=== PATIENT | male | born 1965 | race Caucasian/White ===

== ENCOUNTER 2017-11-11 07:02 | Emergency (ER) | payer SELFPAY ==
[2017-11-11] MEDS ORDERED: Acetaminophen TAB* 325 MG PO ONE (07:23)
[2017-11-11 07:59] LABS: ABS Basophils 0.1 10^3/ul (0-0.2); ABS Eosinophils 0.2 10^3/ul (0-0.6); ABS Lymphocytes 1.6 10^3/ul (1.0-4.8); ABS Monocytes 0.5 10^3/ul (0-0.8); ABS Neutrophils 5.2 10^3/ul (1.5-7.7); ABS Nucleated RBC 0 10^3/ul; Eosinophil % 2.4 % (0-6); Hematocrit 40 % (42-52); Hemoglobin 13.8 g/dl (14.0-18.0); Lymphocyte % 20.8 % (25-47); Mean Corpuscular HGB Conc 35 g/dl (31-36); Mean Corpuscular Hemoglobin 32 pg (27-31); Mean Corpuscular Volume 91 fL (80-94); Mean Platelet Volume 8.7 um3 (7.4-10.4); Nucleated Red Blood Cells % 0; Platelet Count 213 10^3/ul (150-450); Red Blood Count 4.38 10^6/ul (4.0-5.4); Red Cell Distribution Width 13 % (10.5-15); White Blood Count 7.5 10^3/ul (3.5-10.8)
[2017-11-11] MEDS ORDERED: NS 0.9% 1000 ML* 1,000 ML IV SCH (08:00)
[2017-11-11 08:07] LABS: INR 0.94 (0.77-1.02)
[2017-11-11 08:11] LABS: EGFR Non-African American 74.4 (>60)
--- NOTE | 2017-11-11 08:24 | RAD ---
INDICATION: Head injury. COMPARISON: There are no prior studies available for comparison. TECHNIQUE: Contiguous axial sections of the brain were obtained from the skull base to the vertex without contrast. FINDINGS: The ventricles, cisterns and sulci are within normal limits. No significant focal abnormality or mass effect is seen. There is no evidence for hemorrhage. No fracture is seen. There is mucosal thickening within the frontal, ethmoid and maxillary sinuses. No air-fluid levels are noted. The mastoid air cells appear clear. IMPRESSION: NO EVIDENCE FOR ACUTE INTRACRANIAL ABNORMALITY.
--- NOTE | 2017-11-11 08:30 | RAD ---
INDICATION: Trauma. COMPARISON: There are no prior studies available for comparison. TECHNIQUE: Contiguous axial sections were obtained from the skull base through the T3 vertebra. Images were reconstructed in the sagittal and coronal planes. FINDINGS: There is straightening of the cervical spine with loss of the normal cervical lordosis. No prevertebral soft tissue swelling or fracture is seen. At the C3-C4 level there is no spinal canal or neural foraminal narrowing. The C4-C5 level there is mild posterior uncinate process spurring. No spinal canal narrowing is present. There is mild neural foraminal narrowing on the left side. At the C5-C6 level there is mild to moderate uncinate process spurring. No significant spinal canal narrowing is present. There is mild neural foraminal narrowing on the left side. At the C6-C7 level there is mild to moderate uncinate process spurring. No significant spinal canal narrowing is present. There is mild bilateral neural foraminal narrowing. The thyroid gland is not visualized. Most consistent with atrophy or prior surgical removal. There are several calcifications within the thyroid bed on the right side and calcifications in the right paratracheal region suggestive of old granulomatous disease. There are mild groundglass infiltrates present at the lung apices possibly related to atelectasis. IMPRESSION: 1. STRAIGHTENING OF THE CERVICAL SPINE, NO EVIDENCE FOR FRACTURE OR SUBLUXATION. 2. MILD CERVICAL SPONDYLOSIS.
--- NOTE | 2017-11-11 08:38 | RAD ---
INDICATION: Facial trauma. COMPARISON: There are no prior studies available for comparison. TECHNIQUE: Contiguous axial sections of the axial images of the facial bones were obtained and reconstructed in the coronal and sagittal planes. FINDINGS: Soft tissue swelling is noted anterior to the frontal sinus. The haynes of the orbits and maxillary sinuses appear intact. The zygomatic arches appear intact. There is no evidence for a fracture of the mandible. The nose is deviated toward the right side. The nasal bones appear intact. There is moderate to severe S-shaped deviation of the nasal septum which is convex toward the left along its superior portion and toward the right along its inferior portion. There is a small bony spur pointing into the right nasal passageway. The pterygoid plates appear intact. There is a 0.6 cm sclerotic lesion in the right frontal sinus most consistent with a benign osteoma. There is moderate mucosal thickening within the frontal, ethmoid and maxillary sinuses on both sides most consistent with chronic sinusitis. No air-fluid levels are present. The sphenoid sinus and mastoid air cells appear clear. IMPRESSION: 1. NO EVIDENCE FOR FRACTURE. 2. FINDINGS SUGGESTIVE OF CHRONIC SINUSITIS.
[2017-11-11] MEDS ORDERED: Ketorolac INJ* 30 MG/ML 1 ML VIAL IV ONE (09:50)
[2017-11-11] MEDS ORDERED: DOXYcycline CAP(*) 100 MG PO ONE (09:58)
--- NOTE | 2017-11-11 10:08 | ED ---
Melchor Germain Tiffany, scribed for Donald Case MD on 11/11/17 at 0726 . Head Injury - HPI Summary HPI Summary: This patient is a 52 y/o M presenting to [facility] complains of headache s/p being hit in the face by a barn gate that was kicked by a horse at 20:00 yesterday. The patient rates the pain 6/10 in severity. Symptoms aggravated by nothing. Symptoms alleviated by nothing. Reports right hand numbness that began this morning, possible broken nose, epistaxis that is since resolved. Additionally does not remember if he lost consciousness. Denies neck pain, bilateral leg pain , left arm pain, chest pain, shortness of breath. Has hx of concussions. - History Of Current Complaint Chief Complaint: EDHeadInjury Stated Complaint: FACIAL INJURY-NOSE PAIN Time Seen by Provider: 11/11/17 07:15 Hx Obtained From: Patient Mechanism Of Injury: Other - being hit in the face by a barn gate that was kicked by a horse Onset/Duration: Started Hours Ago - Since 20:00 yesterday, Still Present Onset of Pain: Immediate Severity Currently: Moderate Pain Intensity: 6 Pain Scale Used: 0-10 Numeric Aggravating Factor(s): Other: - Nothing Alleviating Factor(s): Other: - Nothing Associated Signs And Symptoms: Negative - neck pain, bilateral leg pain, left arm pain, chest pain, shortness of breath, Other: - right hand numbness that began this morning, possible broken nose, epistaxis that is since resolved - Allergies/Home Medications Allergies/Adverse Reactions: Allergies Allergy/AdvReac Type Severity Reaction Status Date / Time Penicillins Allergy Rash Verified 11/11/17 07:10 Home Medications: Home Medications Aspirin EC TAB* [Ecotrin EC Low Dose 81 MG*] 81 mg PO DAILY 11/11/17 [History Confirmed 11/11/17] Cholecalciferol TAB* [Vitamin D TAB*] 2,000 units PO DAILY 11/11/17 [History Confirmed 11/11/17] Cyanocobalamin TAB* [Vitamin B12 TAB*] 2,000 mcg PO DAILY 11/11/17 [History Confirmed 11/11/17] Insulin ASPART (NF) [Novolog (NF)] 10 units SUBCUT TID 11/11/17 [History Confirmed 11/11/17] Insulin GLARGINE(*) [Lantus(*)] 36 units SUBCUT QPM 11/11/17 [History Confirmed 11/11/17] Levothyroxine TAB* [Synthroid TAB*] 250 mcg PO DAILY 11/11/17 [History Confirmed 11/11/17] Losartan TAB* [Cozaar TAB*] 100 mg PO DAILY 11/11/17 [History Confirmed 11/11/17 ] Multivitamins/Minerals TAB* [Theragran/minerals TAB*] 1 tab PO DAILY 11/11/17 [ History Confirmed 11/11/17] [place]-3 Fatty Acids (Nf) [Fish Oil (NF)] 2,000 mg PO DAILY 11/11/17 [History Confirmed 11/11/17] Simvastatin (NF) [Zocor (NF)] 80 mg PO DAILY 11/11/17 [History Confirmed ] PMH/Surg Hx/FS Hx/Imm Hx Previously Healthy: No Endocrine/Hematology History: Reports: Hx Diabetes - Type I History: Denies: Hx Renal Disease Sensory History: Denies: Hx Deafness EENT History: Denies: Hx Deafness Psychiatric History: Denies: Hx Panic Disorder - Cancer History Cancer Type, Location and Year: Thyroid - Surgical History Surgery Procedure, Year, and Place: Thyroid Infectious Disease History: No Infectious Disease History: Denies: Traveled Outside the [place] in Last 30 Days - Family History Known Family History: Positive: Cardiac Disease - All grandparents Review of Systems Positive: Other - possible broken nose, epistaxis that is since resolved Negative: Chest Pain Negative: Shortness Of Breath Musculoskeletal: Negative - neck pain, bilateral leg pain, left arm pain Positive: Headache, Numbness - Right hand All Other Systems Reviewed And Are Negative: Yes Physical Exam - Summary Physical Exam Summary: General: well-appearing, mild to moderate pain distress Skin: warm, color reflects adequate perfusion, dry Head: normal Eyes: EOMI, CHENCHO ENT: TMs are normal. There is dried blood in left nare, no septal hematoma. Neck: supple, nontender Respiratory: CTA, breath sounds present Cardiovascular: RRR Abdomen: soft, nontender Bowel: present Musculoskeletal: Reported decreased sensation in the 2nd through 5th fingers of the right hand, strength and pulses are normal, capillary refill is normal Neurological: normal, sensory/motor intact, A&O x3 Psychological: affect/mood appropriate Triage Information Reviewed: Yes Vital Signs On Initial Exam: Initial Vitals Temp Pulse Resp BP Pulse Ox 98.8 F 89 18 160/89 97 11/11/17 07:07 11/11/17 07:07 11/11/17 07:07 11/11/17 07:07 11/11/17 07:07 Vital Signs Reviewed: Yes Diagnostics - Vital Signs Vital Signs Temp Pulse Resp BP Pulse Ox 11/11/17 07:07 98.8 F 89 18 160/89 97 - Laboratory Lab Results: Lab Results 11/11/17 11/11/17 11/11/17 Range/Units 07:30 07:37 07:37 WBC 7.5 (3.5-10.8) 10^3/ul RBC 4.38 (4.0-5.4) 10^6/ul Hgb 13.8 L (14.0-18.0) g/dl Hct 40 L (42-52) % MCV 91 (80-94) fL MCH 32 H (27-31) pg MCHC 35 (31-36) g/dl RDW 13 (10.5-15) % Plt Count 213 (150-450) 10^3/ul MPV 8.7 (7.4-10.4) um3 Neut % (Auto) 69.4 (38-83) % Lymph % (Auto) 20.8 L (25-47) % Winston % (Auto) 6.0 (0-7) % Eos % (Auto) 2.4 (0-6) % Baso % (Auto) 1.4 (0-2) % Absolute Neuts (auto) 5.2 (1.5-7.7) 10^3/ul Absolute Lymphs (auto) 1.6 (1.0-4.8) 10^3/ul Absolute Monos (auto) 0.5 (0-0.8) 10^3/ul Absolute Eos (auto) 0.2 (0-0.6) 10^3/ul Absolute Basos (auto) 0.1 (0-0.2) 10^3/ul Absolute Nucleated RBC 0 10^3/ul Nucleated RBC % 0 INR (Anticoag Therapy) 0.94 (0.77-1.02) APTT 34.0 (26.0-36.3) seconds Sodium (139-145) mmol/L Potassium (3.5-5.0) mmol/L Chloride (101-111) mmol/L Carbon Dioxide (22-32) mmol/L Anion Gap (2-11) mmol/L BUN (6-24) mg/dL Creatinine (0.67-1.17) mg/dL Est GFR ( Amer) (>60) Est GFR (Non-Af Amer) (>60) BUN/Creatinine Ratio (8-20) Glucose (70-100) mg/dL POC Glucose (mg/dL) 225 H (70-100) mg/dL Calcium (8.6-10.3) mg/dL Total Bilirubin (0.2-1.0) mg/dL AST (13-39) U/L ALT (7-52) U/L Alkaline Phosphatase (34-104) U/L Total Protein (6.4-8.9) g/dL Albumin (3.2-5.2) g/dL Globulin (2-4) g/dL Albumin/Globulin Ratio (1-3) Salicylates (<30) mg/dL Acetaminophen mcg/mL Serum Alcohol (<10) mg/dL Blood Type Antibody Screen 11/11/17 11/11/17 Range/Units 07:37 07:37 WBC (3.5-10.8) 10^3/ul RBC (4.0-5.4) 10^6/ul Hgb (14.0-18.0) g/dl Hct (42-52) % MCV (80-94) fL MCH (27-31) pg MCHC (31-36) g/dl RDW (10.5-15) % Plt Count (150-450) 10^3/ul MPV (7.4-10.4) um3 Neut % (Auto) (38-83) % Lymph % (Auto) (25-47) % Winston % (Auto) (0-7) % Eos % (Auto) (0-6) % Baso % (Auto) (0-2) % Absolute Neuts (auto) (1.5-7.7) 10^3/ul Absolute Lymphs (auto) (1.0-4.8) 10^3/ul Absolute Monos (auto) (0-0.8) 10^3/ul Absolute Eos (auto) (0-0.6) 10^3/ul Absolute Basos (auto) (0-0.2) 10^3/ul Absolute Nucleated RBC 10^3/ul Nucleated RBC % INR (Anticoag Therapy) (0.77-1.02) APTT (26.0-36.3) seconds Sodium 139 (139-145) mmol/L Potassium 4.2 (3.5-5.0) mmol/L Chloride 105 (101-111) mmol/L Carbon Dioxide 25 (22-32) mmol/L Anion Gap 9 (2-11) mmol/L BUN 17 (6-24) mg/dL Creatinine 1.04 (0.67-1.17) mg/dL Est GFR ( Amer) 95.7 (>60) Est GFR (Non-Af Amer) 74.4 (>60) BUN/Creatinine Ratio 16.3 (8-20) Glucose 222 H (70-100) mg/dL POC Glucose (mg/dL) (70-100) mg/dL Calcium 9.2 (8.6-10.3) mg/dL Total Bilirubin 0.70 (0.2-1.0) mg/dL AST 17 (13-39) U/L ALT 18 (7-52) U/L Alkaline Phosphatase 75 (34-104) U/L Total Protein 6.9 (6.4-8.9) g/dL Albumin 4.2 (3.2-5.2) g/dL Globulin 2.7 (2-4) g/dL Albumin/Globulin Ratio 1.6 (1-3) Salicylates < 2.50 (<30) mg/dL Acetaminophen < 15 mcg/mL Serum Alcohol 19 H (<10) mg/dL Blood Type A Positive Antibody Screen Negative Result Diagrams: 11/11/17 07:37 11/11/17 07:37 Lab Statement: Any lab studies that have been ordered have been reviewed, and results considered in the medical decision making process. - CT Brain CT Interpretation Completed By: Radiologist - NO EVIDENCE FOR ACUTE INTRACRANIAL ABNORMALITY. ED physician has reviewed this report. C-Spine CT Interpretation Completed By: Radiologist - 1. STRAIGHTENING OF THE CERVICAL SPINE, NO EVIDENCE FOR FRACTURE OR SUBLUXATION. 2. MILD CERVICAL SPONDYLOSIS. ED physician has reviewed this report. Maxillofacial CT Interpretation Completed By: Radiologist - 1. NO EVIDENCE FOR FRACTURE. 2. FINDINGS SUGGESTIVE OF CHRONIC SINUSITIS. ED physician has reviewed this report. Re-Evaluation - Re-Evaluation First Eval Re-Evaluation Time: 09:42 Change: Improved Comment: Patient is more talkative. Discussed discharge plan, agreeable to discharge. Head Injury Course/Dx Course Of Treatment: Medications reviewed. Allergies noted. PAIN DECREASED IN ED. NO NASAL SEPTAL HEMATOMA ON EXAM. THE RIGHT HAND PARESTHESIA IS IN 2ND THROUGH 5TH FINGERS WITHOUT WEAKNESS. IT APPEARS PERIFERAL ON EXAM. I DISCUSSED WOTHT MR PICKETT THE NEED FOR CLOSE FOLLOW UP IF THERE IS NO IMPROVEMENT OF WORSENING OF HIS CONDITION. RETURN TO ED IF WORSE. - Diagnoses Provider Diagnoses: Facial contusion, Head injury, Nasal bleeding, Paresthesias in right hand Discharge - Sign-Out/Discharge Documenting (check all that apply): Discharge/Admit/Transfer - Discharge Plan Condition: Stable Disposition: HOME Prescriptions: DOXYcycline CAP(*) [DOXYcycline 100MG CAP(*)] 100 mg PO BID #20 cap HYDROcodone/ACETAMIN 5-325 MG* [[place]as 5-325 TAB*] 1 tab PO Q6H PRN #15 tab MDD 6 PRN Reason: Pain Patient Education Materials: Sinusitis (ED), Nosebleed (ED), Head Injury (ED), Paresthesia (ED) [place]errals: [facility] [place] [facility] [place] [facility] [place]] Additional Instructions: FOLLOW UP WITH YOUR DOCTOR. RETURN TO THE EMERGENCY DEPARTMENT FOR ANY WORSENING OF YOUR CONDITION; WEAKNESS , NUMBNESS, CHANGE IN SPEECH OR VISION, CONFUSION, FEVER OR QUESTIONS OR CONCERNS. YOUR BLOOD PRESSURE WAS ELEVATED TODAY; FOLLOW UP WITH YOUR PRIMARY CARE DOCTOR WITHIN ONE WEEK. - Billing Disposition and Condition Condition: STABLE Disposition: HOME The documentation as recorded by the Melchor ferguson Tiffany accurately reflects the service I personally performed and the decisions made by me, Donald Case MD.
[2017-11-11 11:43] VITALS: BP 177/88
== END 2017-11-11 11:41 | disposition home or self-care (01) ==
LOC: ED 07:02
DX: K81.9 Cholecystitis, unspecified (principal); Z85.820 Personal history of malignant melanoma of skin
CPT/HCPCS: 36415; 70450; 70486; 72125; 80053; 80320; 80329; 85025; 85610; 85730; 86850; 86900; 86901; 96360; 96374; 96375; 99282; A9270-GY; G0480; J1885